=== PATIENT | male | born 1995 | race Caucasian/White ===

== ENCOUNTER 2024-06-03 04:55 | Emergency (ER) | payer SELFPAY ==
[2024-06-03 05:50] LABS: BASOPHILS % 0.7 % (0.0-2.0); EOSINOPHILS % 4.8 % (0.0-5.0); HEMATOCRIT. 41.5 % (42.0-52.0); HEMOGLOBIN. 14.3 g/dL (14.0-18.0); LYMPHOCYTES % 26.1 % (20.0-50.0); MEAN CORPUSCULAR HEMOGLOBIN 30.8 pg (28.0-32.0); MEAN CORPUSCULAR HGB CONC 34.5 g/dL (31.0-37.0); MEAN CORPUSCULAR VOLUME 89.4 fL (80.0-94.0); MEAN PLATELET VOLUME 8.6 fl (7.4-10.4); MONOCYTES % 8.2 % (2.0-8.0); NEUTROPHILS % 60.2 % (40.0-76.0); PLATELET 286 x1000/uL (130-400); RED BLOOD CELL COUNT 4.65 mill/uL (4.7-6.1); RED CELL DISTRIBUTION WIDTH 13.4 % (11.6-14.6); WHITE BLOOD COUNT 9.4 x1000/uL (4.5-11.0)
[2024-06-03 05:57] LABS: CHLORIDE 104 mEq/L (98-107); POTASSIUM 3.9 mEq/L (3.5-5.1); SODIUM 139 mEq/L (136-145)
[2024-06-03 05:58] LABS: CALCIUM 9.1 mg/dL (8.7-10.4); CARBON DIOXIDE 30 mEq/L (21-32)
[2024-06-03 06:03] LABS: GLUCOSE 103 mg/dL (70-105); UREA NITROGEN BLOOD 14 mg/dL (9-23)
[2024-06-03 06:05] LABS: ALANINE AMINOTRANSFERASE 10 IU/L (10-49); ALBUMIN 4.5 g/dL (3.2-4.8); ASPARTATE AMINOTRANSFERASE 15 IU/L (<34); BILIRUBIN TOTAL 0.3 mg/dL (0.1-1.0); PROTEIN TOTAL 6.9 g/dL (6.0-8.3)
[2024-06-03 06:21] LABS: BILIRUBIN DIRECT < 0.1 mg/dL (<=3.0)
[2024-06-03 09:05] VITALS: BP 108/65; PULSE 56; RESP 16; O2SAT 100
[2024-06-03] MEDS: MAGNESIUM/ALUMINUM HYDROXIDE/SIMETHICONE 30ML UDC PO STA (09:24)
[2024-06-03 09:45] LABS: CLARITY URINE CLEAR (CLEAR); COLOR URINE YELLOW (YELLOW); GLUCOSE URINE NEGATIVE (NEGATIVE); KETONES URINE NEGATIVE (NEGATIVE); LEUKOCYTE ESTERASE URINE NEGATIVE (NEGATIVE); NITRITE URINE NEGATIVE (NEGATIVE); OCCULT BLOOD URINE NEGATIVE (NEGATIVE); PROTEIN URINE NEGATIVE (NEGATIVE); SPECIFIC GRAVITY URINE 1.009 (1.005-1.030); UROBILINOGEN URINE 0.2 E.U./dL (0.2-1.0)
[2024-06-03] MEDS ORDERED: OMEP20CA14 MT (10:13)
== END 2024-06-03 11:11 | disposition home or self-care (01) ==
LOC: ER 05:12
DX: R10.32 Left lower quadrant pain (principal); R10.13 Epigastric pain
CPT/HCPCS: 36415; 74176; 80048; 80076; 81003; 85025; 99284